=== PATIENT | female | born 1995 | race African-American/Black ===

== ENCOUNTER 2018-04-18 17:42 | Emergency (ER) | payer MEDICAID ==
[~2018-04-18] VITALS: Ht 154.9 cm; Wt 55.0 kg
[2018-04-18] MEDS ORDERED: SODIUM CHLORIDE 0.9% 1,000 ML IV SCH (18:47)
[2018-04-18] MEDS ORDERED: FAMOTIDINE 20MG/2ML VIAL IV ONE (19:00)
[2018-04-18] MEDS ORDERED: METHYLPREDNISOLONE SOD SUCC 125 MG/2 ML VIAL IV ONE (19:00)
[2018-04-18] MEDS ORDERED: ONDANSETRON HCL 4MG/2ML INJ IV ONE (19:00)
[2018-04-18] MEDS ORDERED: ALBUTEROL (0.5%) 2.5MG/0.5ML NEB HHN ONE (19:00)
[2018-04-18 20:37] VITALS: BP 111/74
== END 2018-04-18 20:39 | disposition home or self-care (01) ==
LOC: ER 17:42
DX: T78.1XXA Other adverse food reactions, not elsewhere classified, initial encounter (principal); R09.89 Other specified symptoms and signs involving the circulatory and respiratory systems; X58.XXXA Exposure to other specified factors, initial encounter; Z91.010 Allergy to peanuts
CPT/HCPCS: 81025; 94640; 96374; 96375; 99284; J2405; J2930; J3490; J7030; J7611; Z7610